=== PATIENT | female | born 1940 | race Caucasian/White ===

== ENCOUNTER 2017-01-13 13:11 | Emergency (ER) | payer OTHER ==
--- NOTE | 2017-01-13 13:44 | EDPHY ---
H & P Source: Patient Exam Limitations: No limitations - Personal History Current Tetanus Diphtheria and Acellular Pertussis (TDAP): Yes - Medical/Surgical History Hx Asthma: No Hx Chronic Respiratory Disease: No Hx Diabetes: No Hx Cardiac Disease: Yes Hx Renal Disease: No Hx Cirrhosis: No Hx Alcoholism: No Hx HIV/AIDS: No Hx Splenectomy or Spleen Trauma: No - Social History Smoking Status: Unknown if ever smoked Time Seen by Provider: 01/13/17 13:36 HPI/ROS: CHIEF COMPLAINT: Oral trauma. HISTORY OF PRESENT ILLNESS: The patient is a 76-year-old anticoagulated female who presents [place] [employer] [place] just prior to arrival and knocking out her front tooth. She brought the tooth with her. She believes she tripped on a curb and denies preceding factors such as dizziness, chest pain , or shortness of breath. She did not lose consciousness. She denies headache, weakness, pain in her arms, or other symptoms. She is anticoagulated on Aggrenox. She has a history of 2 prior CVAs, had been on Coumadin, and developed a subdural hematoma. Patient reports being otherwise well. She had been going to lunch with her family. No fever, chills, chest pain, shortness of breath, palpitations, vomiting, diarrhea, urinary complaints, headache, lightheadedness. REVIEW OF SYSTEMS: Aside from elements discussed in the HPI, a comprehensive 10-point review of systems was reviewed and is negative. PAST MEDICAL HISTORY: Subdural hematoma, TIAs. SOCIAL HISTORY: Here with son, lives in [place]. VITAL SIGNS: Reviewed by me; see NN. GENERAL: Well-developed, well-nourished, in no acute distress. HEENT: Head: Atraumatic, normocephalic. Face: PERRL, EOMI, no nystagmus. Abrasion and swelling to nasal bridge. Abrasion to upper lip with laceration that crosses nessa border at midline. Oropharynx: No trauma, normal occlusion. Right front tooth (5) missing. Laceration at gumline of front incisors. Neck: C-collar in place, C4/C5 tenderness. No adenopathy. CHEST: Nontender, no subcutaneous air palpable. LUNGS: Clear to auscultation bilaterally, breath sounds are equal. CARDIAC: Regular rate and rhythm, no rubs, murmurs or gallops. ABDOMEN: Soft, nontender, nondistended, bowel sounds normal. BACK: No CVA tenderness, no spinal tenderness. EXTREMITIES: No trauma noted, normal range of motion. Abrasion and swelling left knee. Small ecchymosis and small amount of swelling to right knee PULSES: 2+ and equal throughout. NEURO: Alert and oriented x3, cranial nerves are intact throughout, normal motor , normal sensation. SKIN: Warm and dry, no rash. Portions of this note were transcribed by a medical assistant cardiology. I personally performed a history, physical exam, medical decision making, and confirmed accuracy of information the transcribed note. (Rosalinda Celaya) Constitutional: Initial Vital Signs Heart Rate 70 01/13/17 15:10 Respiratory Rate 14 01/13/17 15:10 Blood Pressure 190/72 H 01/13/17 15:10 O2 Sat (%) 96 01/13/17 15:10 O2 Delivery Mode Room Air Allergies/Adverse Reactions: No Known Allergies Allergy (Unverified 01/13/17 13:35) Home Medications: Medication Instructions Recorded Antivert 01/13/17 Bentyl 10 MG (*) 01/13/17 Cozaar 01/13/17 Diclofenac Sodium 01/13/17 Lipitor 01/13/17 Lopid 600 MG (*) 01/13/17 Lopressor Injection 01/13/17 Valtrex 01/13/17 Medical Decision Making - Diagnostics Imaging: Discussed imaging studies w/ order caller Radiologist Procedures: Procedure: Laceration repair. Verbal consent was obtained from the patient. The 2 cm laceration on the upper lip was anesthetized using 1% lidocaine without epinephrine. The wound was carefully irrigated by the emergency department pilot plant technician. Next, the wound was prepped and draped in sterile fashion and explored to its base with a gloved finger. There were no deep structures involved. No vascular injury was identified. No foreign bodies were identified. The wound was repaired with 6.0 Prolene, 8 simple interrupted sutures, 4.0 Vicryl, 1 simple interrupted suture. The wound repair was complex through the vermilion border. Multiple wound margins required revising. Multiple flaps required alignment. The procedure was performed by myself. Tetanus and antibiotic status were addressed. (Quyen Romo) ED Course/Re-evaluation: 76-year-old female presents after tripping on [address] and knocking out her front tooth. The tooth was placed in a whole milk bath on arrival. She denies any preceding symptoms and reports that the fall was mechanical. She has a small amount of tenderness at the C4/C5 level and a c-collar is in place. C- spine CT ordered. Head CT and maxillofacial CTs ordered as well. I offered her pain medication but she declined. Patient's front incisor was replaced by myself with gentle pressure. Patient tolerated it well. 1521: CT results conveyed to me by radiology as nasal spine fracture, no intracranial pathology and no cervical spine fractures. The patient's lacerations will be sutured by Quyen Romo, JOSE GUADALUPE. Patient's course was discussed with Dr. Dumont, from oral surgery. Arrangements were made for the patient be seen tomorrow. She will stay in the [place] area this evening with her family. (Rosalinda Celaya) Differential Diagnosis: Differential diagnosis of this patient's trauma was considered including but not limited to intracranial injury, facial bone fracture, cervical spine fracture, facial lacerations, through and through lip laceration, dental trauma , maxillary fracture,extremity injury, intra-abdominal injury, lacerations, abrasions, and contusions. (Rosalinda Celaya) Departure - Departure Disposition: Home, Routine, Self-Care Clinical Impression: Loss of tooth, Nasal spine fracture Lip laceration Qualifiers: Encounter type: initial encounter Qualified Code(s): S01.511A - Laceration without foreign body of lip, initial encounter Facial contusion Qualifiers: Encounter type: initial encounter Qualified Code(s): S00.83XA - Contusion of other part of head, initial encounter Condition: Good Instructions: Care For Your Stitches (ED), Acute Dental Trauma (ED), Care For Your Absorbable Stitches (ED) Additional Instructions: Set up an appointment with your dentist tomorrow for reevaluation. Call Dr. Dumont, oral surgery, tomorrow to set up an appointment. Keep wounds clean. The sutures need to be removed in 5 days as we discussed. Return for any serious worsening of condition. Referrals: Troy Dumont DDS [Doctor of Dental Surgery] - As per Instructions Report Scribed for: Rosalinda Celaya Report Scribed by: Vu Ayala Date of Report: 01/13/17 Time of Report: 13:41
[2017-01-13 15:11] VITALS: O2SAT 96
[2017-01-13 17:21] VITALS: BP 172/68; PULSE 71; RESP 16; TEMP 98.6
== END 2017-01-13 17:29 | disposition home or self-care (01) ==
LOC: EDUNIT#
PROC: 0CQ0XZZ Repair Upper Lip, External Approach (ICD-10-PCS; principal; 2017-01-13)
DX: S02.2XXA Fracture of nasal bones, initial encounter for closed fracture (principal); S01.511A Laceration without foreign body of lip, initial encounter; K08.119 Complete loss of teeth due to trauma, unspecified class; W18.39XA Other fall on same level, initial encounter; Y92.89 Other specified places as the place of occurrence of the external cause; Y99.8 Other external cause status